=== PATIENT | female | born 1955 | race Asian ===

== ENCOUNTER 2017-08-17 08:15 | Day surgery (SDC) | payer MEDICAID ==
[~2017-08-17] VITALS: Ht 154.9 cm; Wt 59.4 kg
[2017-08-17] MEDS ORDERED: fentaNYL CITRATE/PF 100 MCG/2 ML AMP ONE (08:44)
[2017-08-17] MEDS ORDERED: SIMETHICONE 40 MG/0.6 ML ML ONE (08:45)
[2017-08-17] MEDS: MIDAZOLAM HCL 5 MG/5 ML VIAL ONE ×3 (09:47→10:03)
[2017-08-17 14:13] VITALS: BP_SYST 106
== END 2017-08-17 11:15 | disposition home or self-care (01) ==
LOC: SMU 08:15 → SDS 08:15
PROVIDERS: ATTEND Internal Medicine
DX: D12.2 Benign neoplasm of ascending colon (principal); K59.00 Constipation, unspecified; K57.30 Diverticulosis of large intestine without perforation or abscess without bleeding; E78.5 Hyperlipidemia, unspecified; D12.0 Benign neoplasm of cecum; K64.8 Other hemorrhoids
CPT/HCPCS: 45380; 45385; 88305; J2250; J3010; J7030